=== PATIENT | male | born 1975 | race Caucasian/White ===

== ENCOUNTER 2021-10-18 16:54 | Emergency (ER) | payer BC ==
[~2021-10-18] VITALS: Ht 185.4 cm; Wt 95.3 kg
[2021-10-18] MEDS ORDERED: LORAZEPAM 1 MG TABLET ONE (18:57)
[2021-10-18] MEDS ORDERED: LORAZEPAM 1 MG TABLET PO ONE (19:00)
[2021-10-18 19:44] LABS: BASOPHILS % (AUTO) 0.5 % (0.0-5.0); EOSINOPHILS % (AUTO) 0.1 % (0.0-8.0); LYMPHOCYTES % (AUTO) 13.1 % (21.0-51.0); MEAN CORPUSCULAR HEMOGLOBIN 28.5 pg (27.0-33.0); MEAN CORPUSCULAR HGB CONC 34.3 g/dL (32.0-36.0); MONOCYTES % (AUTO) 7.2 % (3.0-13.0); NEUTROPHILS % (AUTO) 78.8 % (40.0-77.0); PLATELET COUNT (AUTO) 318 K/uL (130-400); RED CELL DISTRIBUTION WIDTH 12.3 % (11.0-15.5); WHITE BLOOD COUNT (AUTO) 11.6 K/uL (4.8-10.8)
[2021-10-18 19:56] LABS: POTASSIUM 3.9 mmol/L (3.5-5.1)
[2021-10-18 20:00] LABS: ALBUMIN 4.7 g/dL (3.5-5.0); TOTAL PROTEIN, SERUM 9.2 g/dL (6.0-8.3)
[2021-10-18] MEDS ORDERED: HYDR-3421 PO (20:45)
[2021-10-18 21:08] VITALS: BP 154/87
== END 2021-10-18 21:09 | disposition home or self-care (01) ==
LOC: EDH 16:54
DX: F41.9 Anxiety disorder, unspecified (principal); I10 Essential (primary) hypertension; Z79.899 Other long term (current) drug therapy
CPT/HCPCS: 36415; 80053; 84484; 85025